=== PATIENT | female | born 1950 | race Caucasian/White ===

== ENCOUNTER → 2018-06-27 | Outpatient (CLI) | payer MEDICAID ==
[~2018-06-27] MED LIST: CEFAZOLIN 2 GM/50 ML (PMX) 50 ML IVPB; SOD CHLORIDE 0.9% 1,000 ML IV
[2018-06-27 13:10] LABS: WHITE BLOOD COUNT 11.4 10^3/ul (4.8-10.8)
[2018-06-27 13:10] LABS: ADD MAN DIFF? NO; BASOPHILS % 0.3 % (0.0-2.0); EOSINOPHILS # 0.1 10^3/ul (0.0-0.5); EOSINOPHILS % 0.9 % (0.0-7.0); HEMATOCRIT 33.7 % (37.0-47.0); HEMOGLOBIN 10.9 g/dl (12.0-16.0); LYMPHOCYTES # 2.2 10^3/ul (0.8-2.9); LYMPHOCYTES % 19.4 % (15.0-51.0); MEAN CORPUSCULAR HEMOGLOBIN 28.8 pg (29.0-33.0); MEAN CORPUSCULAR HGB CONC 32.3 g/dl (32.0-37.0); MEAN CORPUSCULAR VOLUME 88.9 fl (82.0-101.0); MEAN PLATELET VOLUME 10.3 fl (7.4-10.4); MONOCYTE # 0.8 10^3/ul (0.3-0.9); MONOCYTES % 6.9 % (0.0-11.0); NEUTROPHIL # 8.2 10^3/ul (1.6-7.5); NEUTROPHILS % 71.8 % (39.0-77.0); PLATELET COUNT 329 10^3/UL (140-415); RED BLOOD COUNT 3.79 10^6/ul (4.20-5.40); RED CELL DISTRIBUTION WIDTH 13.3 % (11.5-14.5)
[2018-06-27 13:29] LABS: ALANINE AMINOTRANSFERASE 19 IU/L (13-69); ALBUMIN 4.1 g/dl (3.3-4.9); ALBUMIN/GLOBULIN RATIO 1.36; ALKALINE PHOSPHATASE 95 IU/L (42-121); ANION GAP 11 (5-13); ASPARTATE AMINO TRANSFERASE 15 IU/L (15-46); BILIRUBIN,INDIRECT 0.2 mg/dl (0-1.1); BILIRUBIN,TOTAL 0.2 mg/dl (0.2-1.3); BLOOD UREA NITROGEN 29 mg/dl (7-20); CALCIUM 9.3 mg/dl (8.4-10.2); CARBON DIOXIDE 31 mmol/L (21-31); CHLORIDE 100 mmol/L (97-110); CREATININE 0.95 mg/dl (0.44-1.00); Estimated GFR 58 mL/min (>60); GLUCOSE 187 mg/dl (70-220); INR 0.83; POTASSIUM 4.7 mmol/L (3.5-5.1); PROTIME 11.5 Sec (11.9-14.9); PT RATIO 0.9; SODIUM 142 mmol/L (135-144); TOTAL PROTEIN 7.1 g/dl (6.1-8.1)
== END | disposition home or self-care (01) ==
LOC: LAB 12:15
DX: C50.912 Malignant neoplasm of unspecified site of left female breast (principal); Z90.12 Acquired absence of left breast and nipple
CPT/HCPCS: 71045; 80053; 85025; 85610; 85730; 93005

== ENCOUNTER 2018-11-24 06:53 | Inpatient (IN) | payer MEDICAID ==
[2018-11-24 07:39] LABS: ADD MAN DIFF? NO
[2018-11-24 07:50] LABS: BASOPHIL # 0.1 10^3/ul (0.0-0.1); BASOPHILS % 0.6 % (0.0-2.0); EOSINOPHILS # 0.1 10^3/ul (0.0-0.5); EOSINOPHILS % 0.9 % (0.0-7.0); HEMATOCRIT 34.6 % (37.0-47.0); LYMPHOCYTES # 2.4 10^3/ul (0.8-2.9); LYMPHOCYTES % 19.7 % (15.0-51.0); MEAN CORPUSCULAR HEMOGLOBIN 28.7 pg (29.0-33.0); MEAN CORPUSCULAR HGB CONC 31.8 g/dl (32.0-37.0); MEAN CORPUSCULAR VOLUME 90.3 fl (82.0-101.0); MEAN PLATELET VOLUME 10.6 fl (7.4-10.4); MONOCYTE # 0.9 10^3/ul (0.3-0.9); MONOCYTES % 7.1 % (0.0-11.0); NEUTROPHIL # 8.8 10^3/ul (1.6-7.5); NEUTROPHILS % 71.1 % (39.0-77.0); PLATELET COUNT 336 10^3/UL (140-415); RED BLOOD COUNT 3.83 10^6/ul (4.20-5.40); RED CELL DISTRIBUTION WIDTH 14.2 % (11.5-14.5)
[2018-11-24 07:50] LABS: WHITE BLOOD COUNT 12.3 10^3/ul (4.8-10.8)
[2018-11-24 08:00] LABS: HOLD TRANSMISSIONS 1
[2018-11-24 08:02] LABS: ALANINE AMINOTRANSFERASE 18 IU/L (13-69); ALBUMIN 3.8 g/dl (3.3-4.9); ALKALINE PHOSPHATASE 88 IU/L (42-121); ANION GAP 9 (5-13); ASPARTATE AMINO TRANSFERASE 21 IU/L (15-46); BILIRUBIN,INDIRECT 0.3 mg/dl (0-1.1); BILIRUBIN,TOTAL 0.3 mg/dl (0.2-1.3); BLOOD UREA NITROGEN 20 mg/dl (7-20); CALCIUM 9.6 mg/dl (8.4-10.2); CARBON DIOXIDE 28 mmol/L (21-31); CHLORIDE 104 mmol/L (97-110); CREATININE 0.81 mg/dl (0.44-1.00); Estimated GFR > 60 mL/min (>60); GLUCOSE 101 mg/dl (70-220); POTASSIUM 4.4 mmol/L (3.5-5.1); SODIUM 141 mmol/L (135-144)
[2018-11-24 08:08] LABS: INR 0.85; PROTIME 11.7 Sec (11.9-14.9); PT RATIO 0.9
[2018-11-24 08:09] LABS: PARTIAL THROMBOPLASTIN TIME 29.8 Sec (23.0-35.0)
[2018-11-24 08:28] LABS: ALBUMIN/GLOBULIN RATIO 1.19
[2018-11-24] MEDS: SOD CHLORIDE 0.9% 1,000 ML IV (12:26)
[2018-11-24] MEDS ORDERED: SEVOFLURANE 15 MIN (12:50)
[2018-11-24] MEDS ORDERED: LIDOCAINE 2% (SDV) 5 ML INJ (12:57)
[2018-11-24] MEDS ORDERED: PROPOFOL 20 ML (12:57)
[2018-11-24] MEDS ORDERED: ONDANSETRON 4 MG INJ (12:57)
[2018-11-24] MEDS ORDERED: CEFAZOLIN 1 GM INJ (12:57)
[2018-11-24] MEDS ORDERED: METOCLOPRAMIDE 10 MG INJ (12:58)
[2018-11-24] MEDS ORDERED: hydrALAzine 20 MG INJ IV (14:30)
[2018-11-24] MEDS ORDERED: MIDAZOLAM 1 MG/ML 2 ML INJ IV ×2 (14:30)
[2018-11-24] MEDS ORDERED: MEPERIDINE 25 MG INJ IV (14:30)
[2018-11-24] MEDS ORDERED: DIPHENHYDRAMINE 50 MG INJ IV ×2 (14:30)
[2018-11-24] MEDS ORDERED: FENTAnyl 50 MCG/ML VIAL IV ×6 (14:30)
[2018-11-24] MEDS ORDERED: METOCLOPRAMIDE 10 MG INJ IV ×2 (14:30)
[2018-11-24] MEDS ORDERED: LABETALOL HCL 20MG INJ IV ×2 (14:30)
[2018-11-24] MEDS ORDERED: HYDROmorphONE 1 MG/5 ML IV SYRINGE IV ×4 (14:30)
[2018-11-24] MEDS ORDERED: ONDANSETRON 4 MG INJ IV (14:30)
[2018-11-24] MEDS ORDERED: EPHEDrine 25 MG/5 ML SYG IV ×2 (14:30)
[2018-11-24] MEDS ORDERED: D5W-0.45 NACL + KCL 20 MEQ 1,000 ML IV (14:39)
[2018-11-24] MEDS ORDERED: hydrALAzine 20 MG INJ (14:43)
[2018-11-24] MEDS ORDERED: ACETAMINOPHEN 1000MG/100ML IV 100 ML IVPB (15:00)
[2018-11-24] MEDS ORDERED: morphine 2 MG INJ IV (15:00)
[2018-11-24] MEDS: hydrALAzine 20 MG INJ IV (15:23)
[2018-11-24] MEDS: HYDROmorphONE 1 MG/5 ML IV SYRINGE IV ×2 (15:23→15:34)
[2018-11-24] MEDS: ONDANSETRON 4 MG INJ IV (15:24)
[2018-11-24] MEDS: MEPERIDINE 25 MG INJ IV (16:42)
[2018-11-24] MEDS: INSULIN ASPART [NOVOLOG] 3 ML PEN SC ×2 (18:00→21:00)
[2018-11-24] MEDS ORDERED: NPH, HUMAN INSULIN ISOPHANE 3ML VIAL SC (21:00)
[2018-11-24] MEDS: ATORVASTATIN 80 MG TAB PO (22:12)
[2018-11-24] MEDS: ASCORBIC ACID 500 MG TAB PO (22:13)
[2018-11-24] MEDS: FUROSEMIDE 20 MG TAB PO (22:13)
[2018-11-24] MEDS: SOD CHLORIDE 0.45% 1,000 ML IV (22:13)
[2018-11-25] MEDS: hydrALAzine 20 MG INJ IV ×3 (03:37→22:07)
[2018-11-25 05:58] LABS: ADD MAN DIFF? NO
[2018-11-25] MEDS: HYDROCODONE/APAP (5/325) TAB PO ×4 (06:00→22:06)
[2018-11-25 06:17] LABS: WHITE BLOOD COUNT 11.8 10^3/ul (4.8-10.8)
[2018-11-25 06:17] LABS: BASOPHIL # 0.1 10^3/ul (0.0-0.1); BASOPHILS % 0.4 % (0.0-2.0); EOSINOPHILS % 0.3 % (0.0-7.0); LYMPHOCYTES % 17.1 % (15.0-51.0); MEAN CORPUSCULAR HEMOGLOBIN 28.4 pg (29.0-33.0); MEAN CORPUSCULAR HGB CONC 31.4 g/dl (32.0-37.0); MEAN CORPUSCULAR VOLUME 90.2 fl (82.0-101.0); MEAN PLATELET VOLUME 10.9 fl (7.4-10.4); MONOCYTE # 0.9 10^3/ul (0.3-0.9); MONOCYTES % 7.9 % (0.0-11.0); NEUTROPHIL # 8.7 10^3/ul (1.6-7.5); NEUTROPHILS % 73.9 % (39.0-77.0); PLATELET COUNT 324 10^3/UL (140-415); RED BLOOD COUNT 3.88 10^6/ul (4.20-5.40); RED CELL DISTRIBUTION WIDTH 14.6 % (11.5-14.5)
[2018-11-25 06:44] LABS: ANION GAP 7 (5-13); BLOOD UREA NITROGEN 17 mg/dl (7-20); CALCIUM 8.6 mg/dl (8.4-10.2); CARBON DIOXIDE 28 mmol/L (21-31); CHLORIDE 102 mmol/L (97-110); CREATININE 0.83 mg/dl (0.44-1.00); Estimated GFR > 60 mL/min (>60); GLUCOSE 183 mg/dl (70-220); POTASSIUM 4.1 mmol/L (3.5-5.1); SODIUM 137 mmol/L (135-144)
[2018-11-25] MEDS: SOD CHLORIDE 0.45% 1,000 ML IV ×3 (07:20→20:26)
[2018-11-25] MEDS: ASPIRIN (EC) 81 MG TAB PO (08:14)
[2018-11-25] MEDS: FERROUS SULFATE (EC) 325 MG TAB PO (08:14)
[2018-11-25] MEDS: FUROSEMIDE 20 MG TAB PO (08:14)
[2018-11-25] MEDS: ASCORBIC ACID 500 MG TAB PO (08:15)
[2018-11-25] MEDS: INSULIN ASPART [NOVOLOG] 3 ML PEN SC ×4 (08:17→23:13)
[2018-11-25] MEDS: NPH, HUMAN INSULIN ISOPHANE 3ML VIAL SC ×2 (08:18→23:14)
[2018-11-25 16:18] LABS: CREATINE KINASE 97 IU/L (23-200)
[2018-11-25 16:31] LABS: CK INDEX 2.2; CK-MB 2.11 ng/ml (0.0-2.4)
[2018-11-25 16:33] LABS: TROPONIN-I 0.306 ng/ml (0.000-0.120)
[2018-11-25] MEDS ORDERED: NITROGLYCERIN (SL) 0.4 MG TAB SL (17:00)
[2018-11-25] MEDS: ASPIRIN (EC) 325 MG TAB PO (17:29)
[2018-11-25] MEDS: METOPROLOL 25 MG TAB PO ×2 (17:30→22:06)
[2018-11-25 19:00] LABS: TROPONIN-I 0.258 ng/ml (0.000-0.120)
[2018-11-25] MEDS: ATORVASTATIN 80 MG TAB PO (20:27)
[2018-11-25] MEDS: NITROGLYCERIN 2% 1 GM OINT PKT TD (22:08)
[2018-11-25] MEDS: ONDANSETRON 4 MG INJ IV (23:08)
[2018-11-26 05:53] LABS: ADD MAN DIFF? NO
[2018-11-26 05:56] LABS: WHITE BLOOD COUNT 12.6 10^3/ul (4.8-10.8)
[2018-11-26 05:56] LABS: BASOPHIL # 0.1 10^3/ul (0.0-0.1); BASOPHILS % 0.4 % (0.0-2.0); EOSINOPHILS # 0.1 10^3/ul (0.0-0.5); EOSINOPHILS % 0.5 % (0.0-7.0); HEMATOCRIT 32.9 % (37.0-47.0); HEMOGLOBIN 10.5 g/dl (12.0-16.0); LYMPHOCYTES # 1.9 10^3/ul (0.8-2.9); LYMPHOCYTES % 14.8 % (15.0-51.0); MEAN CORPUSCULAR HEMOGLOBIN 28.6 pg (29.0-33.0); MEAN CORPUSCULAR HGB CONC 31.9 g/dl (32.0-37.0); MEAN CORPUSCULAR VOLUME 89.6 fl (82.0-101.0); MEAN PLATELET VOLUME 10.7 fl (7.4-10.4); MONOCYTE # 1.1 10^3/ul (0.3-0.9); MONOCYTES % 8.5 % (0.0-11.0); NEUTROPHIL # 9.5 10^3/ul (1.6-7.5); NEUTROPHILS % 75.2 % (39.0-77.0); PLATELET COUNT 300 10^3/UL (140-415); RED BLOOD COUNT 3.67 10^6/ul (4.20-5.40); RED CELL DISTRIBUTION WIDTH 14.3 % (11.5-14.5)
[2018-11-26 06:29] LABS: TROPONIN-I 0.173 ng/ml (0.000-0.120)
[2018-11-26 06:32] LABS: ANION GAP 4 (5-13); BLOOD UREA NITROGEN 17 mg/dl (7-20); CALCIUM 8.7 mg/dl (8.4-10.2); CARBON DIOXIDE 30 mmol/L (21-31); CHLORIDE 101 mmol/L (97-110); CHOL/HDL RATIO 4.8 RATIO; CHOLESTEROL 117 mg/dl (100-200); Estimated GFR > 60 mL/min (>60); GLUCOSE 180 mg/dl (70-220); HDL CHOLESTEROL 24 mg/dl (33-92); LDL CHOLESTEROL,CALCULATED 75 mg/dl; POTASSIUM 4.2 mmol/L (3.5-5.1); SODIUM 135 mmol/L (135-144); TRIGLYCERIDES 92 mg/dl (0-149)
[2018-11-26] MEDS: INSULIN ASPART [NOVOLOG] 3 ML PEN SC ×4 (08:04→21:19)
[2018-11-26] MEDS: METOPROLOL 25 MG TAB PO ×2 (08:45→20:52)
[2018-11-26] MEDS: FERROUS SULFATE (EC) 325 MG TAB PO (08:45)
[2018-11-26] MEDS: ASCORBIC ACID 500 MG TAB PO (08:45)
[2018-11-26] MEDS: NITROGLYCERIN 2% 1 GM OINT PKT TD ×3 (08:46→20:53)
[2018-11-26] MEDS: ASPIRIN (EC) 325 MG TAB PO (08:46)
[2018-11-26] MEDS: FUROSEMIDE 20 MG TAB PO (08:46)
[2018-11-26] MEDS: ENOXAPARIN 40 MG/0.4 ML SYG SC (08:54)
[2018-11-26] MEDS: NPH, HUMAN INSULIN ISOPHANE 3ML VIAL SC ×2 (09:02→21:19)
[2018-11-26] MEDS: SOD CHLORIDE 0.45% 1,000 ML IV ×2 (12:07→23:20)
[2018-11-26] MEDS ORDERED: NITROGLYCERIN (SL) 0.4 MG TAB SL (13:00)
[2018-11-26] MEDS: hydrALAzine 20 MG INJ IV (15:08)
[2018-11-26] MEDS: HYDROCODONE/APAP (5/325) TAB PO (16:29)
[2018-11-26] MEDS: NIFEdipine (XL) 30 MG TAB PO ×2 (20:51→21:00)
[2018-11-26] MEDS: ATORVASTATIN 80 MG TAB PO (20:52)
[2018-11-27] MEDS: HYDROCODONE/APAP (5/325) TAB PO ×3 (00:48→16:37)
[2018-11-27] MEDS: SOD CHLORIDE 0.45% 1,000 ML IV ×2 (02:30→16:00)
[2018-11-27 06:34] LABS: ADD MAN DIFF? NO
[2018-11-27 06:37] LABS: WHITE BLOOD COUNT 9.4 10^3/ul (4.8-10.8)
[2018-11-27 06:37] LABS: BASOPHIL # 0.1 10^3/ul (0.0-0.1); BASOPHILS % 0.5 % (0.0-2.0); EOSINOPHILS # 0.2 10^3/ul (0.0-0.5); HEMATOCRIT 30.9 % (37.0-47.0); HEMOGLOBIN 9.7 g/dl (12.0-16.0); LYMPHOCYTES # 2.6 10^3/ul (0.8-2.9); LYMPHOCYTES % 27.3 % (15.0-51.0); MEAN CORPUSCULAR HEMOGLOBIN 28.7 pg (29.0-33.0); MEAN CORPUSCULAR HGB CONC 31.4 g/dl (32.0-37.0); MEAN CORPUSCULAR VOLUME 91.4 fl (82.0-101.0); MEAN PLATELET VOLUME 10.9 fl (7.4-10.4); MONOCYTE # 1.2 10^3/ul (0.3-0.9); MONOCYTES % 12.7 % (0.0-11.0); NEUTROPHIL # 5.4 10^3/ul (1.6-7.5); NEUTROPHILS % 57.1 % (39.0-77.0); PLATELET COUNT 267 10^3/UL (140-415); RED BLOOD COUNT 3.38 10^6/ul (4.20-5.40); RED CELL DISTRIBUTION WIDTH 14.2 % (11.5-14.5)
[2018-11-27 07:01] LABS: ANION GAP 3 (5-13); BLOOD UREA NITROGEN 19 mg/dl (7-20); CALCIUM 8.9 mg/dl (8.4-10.2); CARBON DIOXIDE 32 mmol/L (21-31); CHLORIDE 102 mmol/L (97-110); CREATININE 0.97 mg/dl (0.44-1.00); Estimated GFR 57 mL/min (>60); GLUCOSE 109 mg/dl (70-220); POTASSIUM 4.1 mmol/L (3.5-5.1); SODIUM 137 mmol/L (135-144)
[2018-11-27 07:03] LABS: CREATINE KINASE 53 IU/L (23-200)
[2018-11-27 07:11] LABS: CK INDEX 2.2; CK-MB 1.16 ng/ml (0.0-2.4)
[2018-11-27 07:13] LABS: TROPONIN-I 0.175 ng/ml (0.000-0.120)
[2018-11-27] MEDS: INSULIN ASPART [NOVOLOG] 3 ML PEN SC ×4 (07:51→21:30)
[2018-11-27] MEDS: ASPIRIN (EC) 325 MG TAB PO (08:46)
[2018-11-27] MEDS: FUROSEMIDE 20 MG TAB PO (08:46)
[2018-11-27] MEDS: FERROUS SULFATE (EC) 325 MG TAB PO (08:46)
[2018-11-27] MEDS: METOPROLOL 25 MG TAB PO ×2 (08:47→21:17)
[2018-11-27] MEDS: ASCORBIC ACID 500 MG TAB PO (08:47)
[2018-11-27] MEDS: NIFEdipine (XL) 30 MG TAB PO (08:52)
[2018-11-27] MEDS: NITROGLYCERIN 2% 1 GM OINT PKT TD ×2 (08:53→12:49)
[2018-11-27] MEDS: ENOXAPARIN 40 MG/0.4 ML SYG SC (09:10)
[2018-11-27] MEDS: NPH, HUMAN INSULIN ISOPHANE 3ML VIAL SC ×2 (09:10→21:30)
[2018-11-27] MEDS: ISOSORBIDE DINITRATE 20 MG TAB PO ×2 (13:12→21:13)
[2018-11-27] MEDS: LUBIPROSTONE 8 MCG CAPSULE PO ×2 (13:30→21:18)
[2018-11-27] MEDS: DOCUSATE SODIUM 100 MG CAP PO ×2 (14:04→21:18)
[2018-11-27] MEDS: ATORVASTATIN 80 MG TAB PO (21:12)
[2018-11-27] MEDS: BENAZEPRIL 20 MG TAB PO (21:18)
[2018-11-28] MEDS: HYDROCODONE/APAP (5/325) TAB PO ×2 (01:43→16:28)
[2018-11-28 06:14] LABS: ADD MAN DIFF? NO
[2018-11-28 06:21] LABS: WHITE BLOOD COUNT 9.7 10^3/ul (4.8-10.8)
[2018-11-28 06:21] LABS: BASOPHILS % 0.4 % (0.0-2.0); EOSINOPHILS # 0.2 10^3/ul (0.0-0.5); EOSINOPHILS % 1.8 % (0.0-7.0); HEMATOCRIT 29.9 % (37.0-47.0); HEMOGLOBIN 9.3 g/dl (12.0-16.0); LYMPHOCYTES # 1.9 10^3/ul (0.8-2.9); LYMPHOCYTES % 19.8 % (15.0-51.0); MEAN CORPUSCULAR HEMOGLOBIN 28.5 pg (29.0-33.0); MEAN CORPUSCULAR HGB CONC 31.1 g/dl (32.0-37.0); MEAN CORPUSCULAR VOLUME 91.7 fl (82.0-101.0); MONOCYTE # 1.1 10^3/ul (0.3-0.9); MONOCYTES % 11.4 % (0.0-11.0); NEUTROPHIL # 6.4 10^3/ul (1.6-7.5); NEUTROPHILS % 66.1 % (39.0-77.0); PLATELET COUNT 272 10^3/UL (140-415); RED BLOOD COUNT 3.26 10^6/ul (4.20-5.40); RED CELL DISTRIBUTION WIDTH 13.7 % (11.5-14.5)
[2018-11-28 06:39] LABS: ANION GAP 3 (5-13); BLOOD UREA NITROGEN 30 mg/dl (7-20); CALCIUM 8.7 mg/dl (8.4-10.2); CARBON DIOXIDE 32 mmol/L (21-31); CHLORIDE 102 mmol/L (97-110); Estimated GFR 55 mL/min (>60); GLUCOSE 94 mg/dl (70-220); MAGNESIUM 1.7 mg/dl (1.7-2.5); POTASSIUM 4.3 mmol/L (3.5-5.1); SODIUM 137 mmol/L (135-144)
[2018-11-28 07:01] LABS: TROPONIN-I 0.153 ng/ml (0.000-0.120)
[2018-11-28] MEDS: INSULIN ASPART [NOVOLOG] 3 ML PEN SC ×4 (07:48→21:18)
[2018-11-28] MEDS: DOCUSATE SODIUM 100 MG CAP PO ×2 (08:30→20:53)
[2018-11-28] MEDS: LUBIPROSTONE 8 MCG CAPSULE PO ×2 (08:30→20:54)
[2018-11-28] MEDS: FERROUS SULFATE (EC) 325 MG TAB PO (08:30)
[2018-11-28] MEDS: ASPIRIN (EC) 325 MG TAB PO (08:30)
[2018-11-28] MEDS: ASCORBIC ACID 500 MG TAB PO (08:30)
[2018-11-28] MEDS: FUROSEMIDE 20 MG TAB PO (08:31)
[2018-11-28] MEDS: ISOSORBIDE DINITRATE 20 MG TAB PO ×3 (08:31→20:52)
[2018-11-28] MEDS: METOPROLOL 25 MG TAB PO ×2 (08:31→20:55)
[2018-11-28] MEDS: BENAZEPRIL 20 MG TAB PO (08:32)
[2018-11-28] MEDS: ENOXAPARIN 40 MG/0.4 ML SYG SC (08:33)
[2018-11-28] MEDS: NPH, HUMAN INSULIN ISOPHANE 3ML VIAL SC ×2 (08:45→21:19)
[2018-11-28 14:21] LABS: AADO2 Arterial 28.4 mmHg (7.0-24.0); Allen Test ACCEPTAB; Arterial Base Excess 3.2 mmol/L (-3.0-3); Arterial Blood Gas Oxygen Sat 92.7 mmHG (95.0-98.0); Arterial COHb 0.3 % (0.0-3.0); Arterial HCO3 28.9 mmol/L (22.0-26.0); Arterial MetHb 0.5 % (0.0-1.5); Arterial pCO2 48.9 mmhg (35-45); MODE ROOM AIR; Site Right Radial
[2018-11-28] MEDS: hydrALAzine 20 MG INJ IV (15:38)
[2018-11-28] MEDS: ATORVASTATIN 80 MG TAB PO (20:53)
[2018-11-28] MEDS: BENAZEPRIL 10 MG TAB PO (21:01)
[2018-11-28] MEDS: MINERAL OIL 30ML CUP PO (21:33)
[2018-11-28] MEDS ORDERED: GLUCAGON 1 MG INJ IM (22:00)
[2018-11-28] MEDS ORDERED: DEXTROSE 50% 50 ML SYRINGE IV (22:00)
[2018-11-28] MEDS: Insulin NOVOLOG SS Algorithm ONE SC (22:44)
[2018-11-29 06:12] LABS: ADD MAN DIFF? NO
[2018-11-29] MEDS: hydrALAzine 20 MG INJ IV (06:20)
[2018-11-29 06:22] LABS: BASOPHILS % 0.5 % (0.0-2.0); EOSINOPHILS # 0.1 10^3/ul (0.0-0.5); EOSINOPHILS % 0.7 % (0.0-7.0); HEMATOCRIT 30.1 % (37.0-47.0); HEMOGLOBIN 9.6 g/dl (12.0-16.0); LYMPHOCYTES # 1.4 10^3/ul (0.8-2.9); LYMPHOCYTES % 17.8 % (15.0-51.0); MEAN CORPUSCULAR HEMOGLOBIN 28.6 pg (29.0-33.0); MEAN CORPUSCULAR HGB CONC 31.9 g/dl (32.0-37.0); MEAN CORPUSCULAR VOLUME 89.6 fl (82.0-101.0); MEAN PLATELET VOLUME 10.9 fl (7.4-10.4); MONOCYTE # 0.9 10^3/ul (0.3-0.9); NEUTROPHIL # 5.6 10^3/ul (1.6-7.5); NEUTROPHILS % 69.5 % (39.0-77.0); PLATELET COUNT 294 10^3/UL (140-415); RED BLOOD COUNT 3.36 10^6/ul (4.20-5.40); RED CELL DISTRIBUTION WIDTH 14.1 % (11.5-14.5)
[2018-11-29 06:58] LABS: ANION GAP 6 (5-13); BLOOD UREA NITROGEN 31 mg/dl (7-20); CALCIUM 8.7 mg/dl (8.4-10.2); CARBON DIOXIDE 30 mmol/L (21-31); CHLORIDE 102 mmol/L (97-110); CREATININE 1.01 mg/dl (0.44-1.00); Estimated GFR 54 mL/min (>60); GLUCOSE 108 mg/dl (70-220); POTASSIUM 4.1 mmol/L (3.5-5.1); SODIUM 138 mmol/L (135-144)
[2018-11-29] MEDS: INSULIN ASPART [NOVOLOG] 3 ML PEN SC ×4 (08:00→20:59)
[2018-11-29] MEDS: LUBIPROSTONE 8 MCG CAPSULE PO ×2 (08:56→21:09)
[2018-11-29] MEDS: DOCUSATE SODIUM 100 MG CAP PO ×2 (08:56→21:10)
[2018-11-29] MEDS: ASCORBIC ACID 500 MG TAB PO (08:57)
[2018-11-29] MEDS: METOPROLOL 25 MG TAB PO ×2 (08:57→21:11)
[2018-11-29] MEDS: ISOSORBIDE DINITRATE 20 MG TAB PO ×3 (08:57→21:10)
[2018-11-29] MEDS: MINERAL OIL 30ML CUP PO ×3 (08:58→21:12)
[2018-11-29] MEDS: FERROUS SULFATE (EC) 325 MG TAB PO (08:58)
[2018-11-29] MEDS: ASPIRIN (EC) 325 MG TAB PO (08:58)
[2018-11-29] MEDS: FUROSEMIDE 20 MG TAB PO (08:58)
[2018-11-29] MEDS: Insulin NOVOLOG SS Algorithm ONE SC ×2 (08:59→20:59)
[2018-11-29] MEDS: ENOXAPARIN 40 MG/0.4 ML SYG SC (09:12)
[2018-11-29] MEDS: NPH, HUMAN INSULIN ISOPHANE 3ML VIAL SC ×2 (09:22→21:00)
[2018-11-29] MEDS: BENAZEPRIL 10 MG TAB PO ×2 (10:32→21:12)
[2018-11-29] MEDS: CLONIDINE 0.1 MG/24 HR PATCH TRANSDERM (12:33)
[2018-11-29] MEDS: ATORVASTATIN 80 MG TAB PO (21:10)
[2018-11-30] MEDS: INSULIN ASPART [NOVOLOG] 3 ML PEN SC ×4 (07:32→21:00)
[2018-11-30] MEDS: hydrALAzine 20 MG INJ IV ×2 (07:34→16:06)
[2018-11-30] MEDS: ASCORBIC ACID 500 MG TAB PO (08:54)
[2018-11-30] MEDS: METOPROLOL 25 MG TAB PO ×2 (08:55→21:17)
[2018-11-30] MEDS: BENAZEPRIL 10 MG TAB PO ×2 (08:55→21:16)
[2018-11-30] MEDS: FERROUS SULFATE (EC) 325 MG TAB PO (08:55)
[2018-11-30] MEDS: FUROSEMIDE 20 MG TAB PO (08:55)
[2018-11-30] MEDS: ASPIRIN (EC) 325 MG TAB PO (08:55)
[2018-11-30] MEDS: ISOSORBIDE DINITRATE 20 MG TAB PO ×3 (08:56→21:16)
[2018-11-30] MEDS: LUBIPROSTONE 8 MCG CAPSULE PO ×2 (08:56→21:20)
[2018-11-30] MEDS: DOCUSATE SODIUM 100 MG CAP PO ×2 (08:57→21:16)
[2018-11-30] MEDS: Insulin NOVOLOG SS Algorithm ONE SC ×2 (08:57→21:00)
[2018-11-30] MEDS: MINERAL OIL 30ML CUP PO ×3 (08:57→21:00)
[2018-11-30] MEDS: ENOXAPARIN 40 MG/0.4 ML SYG SC (08:59)
[2018-11-30] MEDS: NPH, HUMAN INSULIN ISOPHANE 3ML VIAL SC ×2 (12:22→21:00)
[2018-11-30] MEDS: ATORVASTATIN 80 MG TAB PO (21:17)
[2018-12-01] MEDS: hydrALAzine 20 MG INJ IV (04:26)
[2018-12-01] MEDS: INSULIN ASPART [NOVOLOG] 3 ML PEN SC ×4 (08:00→20:07)
[2018-12-01] MEDS: MINERAL OIL 30ML CUP PO ×4 (09:00→20:05)
[2018-12-01] MEDS: LUBIPROSTONE 8 MCG CAPSULE PO ×2 (09:07→20:06)
[2018-12-01] MEDS: FERROUS SULFATE (EC) 325 MG TAB PO (09:08)
[2018-12-01] MEDS: ASCORBIC ACID 500 MG TAB PO (09:08)
[2018-12-01] MEDS: FUROSEMIDE 20 MG TAB PO (09:09)
[2018-12-01] MEDS: METOPROLOL 25 MG TAB PO ×2 (09:10→20:07)
[2018-12-01] MEDS: ASPIRIN (EC) 325 MG TAB PO (09:13)
[2018-12-01] MEDS: ISOSORBIDE DINITRATE 20 MG TAB PO ×3 (09:13→20:07)
[2018-12-01] MEDS: DOCUSATE SODIUM 100 MG CAP PO ×2 (09:14→20:07)
[2018-12-01] MEDS: BENAZEPRIL 10 MG TAB PO ×2 (09:14→20:06)
[2018-12-01] MEDS: ENOXAPARIN 40 MG/0.4 ML SYG SC (09:17)
[2018-12-01] MEDS: Insulin NOVOLOG SS Algorithm ONE SC ×2 (09:33→20:22)
[2018-12-01] MEDS: NPH, HUMAN INSULIN ISOPHANE 3ML VIAL SC ×2 (09:41→20:20)
[2018-12-01] MEDS: CEFAZOLIN 1 GM/50 ML (PMX) 50 ML IVPB (19:33)
[2018-12-01] MEDS: IOHEXOL 300MG/ML 150 ML BTL (19:33)
[2018-12-01] MEDS: ATORVASTATIN 80 MG TAB PO (20:05)
[2018-12-02 05:09] LABS: ADD MAN DIFF? NO
[2018-12-02 05:12] LABS: BASOPHILS % 0.5 % (0.0-2.0); EOSINOPHILS # 0.2 10^3/ul (0.0-0.5); HEMATOCRIT 30.7 % (37.0-47.0); HEMOGLOBIN 9.7 g/dl (12.0-16.0); LYMPHOCYTES # 2.4 10^3/ul (0.8-2.9); LYMPHOCYTES % 29.1 % (15.0-51.0); MEAN CORPUSCULAR HEMOGLOBIN 28.4 pg (29.0-33.0); MEAN CORPUSCULAR HGB CONC 31.6 g/dl (32.0-37.0); MEAN PLATELET VOLUME 10.8 fl (7.4-10.4); MONOCYTE # 0.8 10^3/ul (0.3-0.9); MONOCYTES % 9.8 % (0.0-11.0); NEUTROPHIL # 4.9 10^3/ul (1.6-7.5); PLATELET COUNT 326 10^3/UL (140-415); RED BLOOD COUNT 3.41 10^6/ul (4.20-5.40); RED CELL DISTRIBUTION WIDTH 14.1 % (11.5-14.5)
[2018-12-02 05:12] LABS: WHITE BLOOD COUNT 8.4 10^3/ul (4.8-10.8)
[2018-12-02 06:12] LABS: ANION GAP 4 (5-13); BLOOD UREA NITROGEN 36 mg/dl (7-20); CALCIUM 9.1 mg/dl (8.4-10.2); CARBON DIOXIDE 31 mmol/L (21-31); CHLORIDE 104 mmol/L (97-110); CREATININE 1.05 mg/dl (0.44-1.00); Estimated GFR 52 mL/min (>60); GLUCOSE 118 mg/dl (70-220); POTASSIUM 4.2 mmol/L (3.5-5.1); SODIUM 139 mmol/L (135-144)
[2018-12-02] MEDS: INSULIN ASPART [NOVOLOG] 3 ML PEN SC ×4 (07:49→21:08)
[2018-12-02] MEDS: ASPIRIN (EC) 325 MG TAB PO (08:58)
[2018-12-02] MEDS: FERROUS SULFATE (EC) 325 MG TAB PO (08:58)
[2018-12-02] MEDS: LUBIPROSTONE 8 MCG CAPSULE PO ×2 (08:58→21:01)
[2018-12-02] MEDS: DOCUSATE SODIUM 100 MG CAP PO ×2 (08:59→21:00)
[2018-12-02] MEDS: METOPROLOL 25 MG TAB PO ×2 (08:59→21:03)
[2018-12-02] MEDS: BENAZEPRIL 10 MG TAB PO ×3 (09:00→21:02)
[2018-12-02] MEDS: Insulin NOVOLOG SS Algorithm ONE SC ×2 (09:00→21:00)
[2018-12-02] MEDS: FUROSEMIDE 20 MG TAB PO (09:00)
[2018-12-02] MEDS: MINERAL OIL 30ML CUP PO ×3 (09:00→21:03)
[2018-12-02] MEDS: ASCORBIC ACID 500 MG TAB PO (09:00)
[2018-12-02] MEDS: ISOSORBIDE DINITRATE 20 MG TAB PO ×3 (09:01→21:01)
[2018-12-02] MEDS: ENOXAPARIN 40 MG/0.4 ML SYG SC (09:02)
[2018-12-02] MEDS: NPH, HUMAN INSULIN ISOPHANE 3ML VIAL SC ×2 (09:04→21:06)
[2018-12-02] MEDS: MINOXIDIL 2.5 MG TAB PO ×2 (10:01→21:00)
[2018-12-02] MEDS: ATORVASTATIN 80 MG TAB PO (21:01)
[2018-12-03] MEDS: LUBIPROSTONE 8 MCG CAPSULE PO ×2 (08:26→22:12)
[2018-12-03] MEDS: ASCORBIC ACID 500 MG TAB PO (08:27)
[2018-12-03] MEDS: FERROUS SULFATE (EC) 325 MG TAB PO (08:27)
[2018-12-03] MEDS: ASPIRIN (EC) 325 MG TAB PO (08:28)
[2018-12-03] MEDS: DOCUSATE SODIUM 100 MG CAP PO ×2 (08:28→22:08)
[2018-12-03] MEDS: METOPROLOL 25 MG TAB PO ×2 (08:31→22:10)
[2018-12-03] MEDS: FUROSEMIDE 20 MG TAB PO (08:31)
[2018-12-03] MEDS: ISOSORBIDE DINITRATE 20 MG TAB PO ×3 (08:32→22:12)
[2018-12-03] MEDS: MINOXIDIL 2.5 MG TAB PO ×2 (08:33→22:09)
[2018-12-03] MEDS: BENAZEPRIL 10 MG TAB PO ×2 (08:34→22:11)
[2018-12-03] MEDS: MINERAL OIL 30ML CUP PO ×3 (08:35→22:07)
[2018-12-03] MEDS: NPH, HUMAN INSULIN ISOPHANE 3ML VIAL SC ×2 (08:47→22:04)
[2018-12-03] MEDS: Insulin NOVOLOG SS Algorithm ONE SC ×2 (08:47→22:05)
[2018-12-03] MEDS: INSULIN ASPART [NOVOLOG] 3 ML PEN SC ×4 (08:47→22:06)
[2018-12-03] MEDS: ENOXAPARIN 40 MG/0.4 ML SYG SC (08:47)
[2018-12-03] MEDS: ATORVASTATIN 80 MG TAB PO (22:09)
[2018-12-04] MEDS: Insulin NOVOLOG SS Algorithm ONE SC (08:02)
[2018-12-04] MEDS: INSULIN ASPART [NOVOLOG] 3 ML PEN SC ×2 (08:05→12:01)
[2018-12-04] MEDS: DOCUSATE SODIUM 100 MG CAP PO (08:31)
[2018-12-04] MEDS: MINERAL OIL 30ML CUP PO ×2 (08:31→12:50)
[2018-12-04] MEDS: ISOSORBIDE DINITRATE 20 MG TAB PO ×2 (08:31→12:21)
[2018-12-04] MEDS: METOPROLOL 25 MG TAB PO (08:32)
[2018-12-04] MEDS: ASPIRIN (EC) 325 MG TAB PO (08:32)
[2018-12-04] MEDS: FUROSEMIDE 20 MG TAB PO (08:33)
[2018-12-04] MEDS: FERROUS SULFATE (EC) 325 MG TAB PO (08:33)
[2018-12-04] MEDS: ASCORBIC ACID 500 MG TAB PO (08:33)
[2018-12-04] MEDS: MINOXIDIL 2.5 MG TAB PO (08:34)
[2018-12-04] MEDS: BENAZEPRIL 10 MG TAB PO (08:35)
[2018-12-04] MEDS: LUBIPROSTONE 8 MCG CAPSULE PO (08:35)
[2018-12-04] MEDS: ENOXAPARIN 40 MG/0.4 ML SYG SC (08:39)
[2018-12-04] MEDS: NPH, HUMAN INSULIN ISOPHANE 3ML VIAL SC (08:59)
== END 2018-12-04 16:35 | disposition home or self-care (01) | DRG 579 ==
LOC: SDS 06:53 → 6WM 11-25 18:44 → SDS 14:39 → REC 14:39 → PP2 20:00
PROC: 0HBU0ZZ Excision of Left Breast, Open Approach (ICD-10-PCS; principal; 2018-11-24 13:00)
PROC: 07B60ZX Excision of Left Axillary Lymphatic, Open Approach, Diagnostic (ICD-10-PCS; 2018-11-24 13:00)
DX: C50.912 Malignant neoplasm of unspecified site of left female breast (principal); I21.A1 Myocardial infarction type 2; E11.8 Type 2 diabetes mellitus with unspecified complications; I10 Essential (primary) hypertension; E78.5 Hyperlipidemia, unspecified; E66.9 Obesity, unspecified; Z68.35 Body mass index [BMI] 35.0-35.9, adult; R07.9 Chest pain, unspecified; I16.0 Hypertensive urgency; D72.829 Elevated white blood cell count, unspecified
CPT/HCPCS: 36600; 71045; 80048; 80053; 80061; 82550; 82553; 82803; 82962; 83735; 84484; 85025; 85610; 85730; 88307; 88331; 93005; 93306